=== PATIENT | female | born 1960 | race Caucasian/White ===

== ENCOUNTER 2023-04-08 06:34 | Emergency (ER) | payer OTHER ==
[2023-04-08 06:42] VITALS: BMI 18.8
[2023-04-08 08:45] LABS: BASO % 0.4 % (0-2.0); EOS % 11.5 % (0-4.5); HEMATOCRIT 39.8 % (32.4-45.2); HEMOGLOBIN 13.2 GM/dL (10.7-15.3); LYMPH % 25.4 % (8-40); MCH 29.4 pg (25.7-33.7); MCHC 33.2 g/dl (32.0-36.0); MEAN CELL VOLUME 88.5 fl (80-96); MEAN PLT VOLUME 7.5 fl (7.5-11.1); MONO % 11.1 % (3.8-10.2); NEUT % 51.6 % (42.8-82.8); PLATELET COUNT 244 10^3/uL (134-434); RDW 13.6 % (11.6-15.6); WHITE BLOOD COUNT 8.9 K/mm3 (4.0-10.0)
[2023-04-08 08:54] LABS: INR 1.12 (0.83-1.09)
[2023-04-08 09:05] LABS: ALBUMIN 3.5 g/dl (3.4-5.0); BLOOD UREA NITROGEN 13.4 mg/dL (7-18)
[2023-04-08 09:08] LABS: CREATININE 0.5 mg/dL (0.55-1.3)
[2023-04-08 09:10] LABS: BILIRUBIN,TOTAL 1.3 mg/dL (0.2-1); TOT PROT 7.4 g/dl (6.4-8.2)
[2023-04-08 09:58] VITALS: BP 95/51; PULSE 61; RESP 16; TEMP 98
== END 2023-04-08 09:58 | disposition home or self-care (01) ==
LOC: JER 06:34
DX: R04.0 Epistaxis (principal)
CPT/HCPCS: 36415; 80053; 85025; 85610; 99283-25